=== PATIENT | female | born 1970 | race Caucasian/White ===

== ENCOUNTER 2020-09-25 08:10 | Outpatient (REF) | payer MEDICARE, MEDICAID, SELFPAY ==
--- NOTE | ~2020-09-25 | XR_ITS ---
EXAMINATION: XR SHOULDER, LEFT CLINICAL INFORMATION: Pain. COMPARISON: None TECHNIQUE: 3 views of the left shoulder. FINDINGS: The glenohumeral joint space and left AC joint space is normal. No bony erosive changes or loose bodies visualized. No visible acute fracture, dislocation or subluxation seen. XR/XR shoulder LT min 2V IMPRESSION: Unremarkable left shoulder exam.
== END 2020-09-25 08:11 | disposition home or self-care (01) ==
LOC: HO.HOSX 08:10
PROVIDERS: Visit Provider Orthopaedic Surgery
DX: M67.912 Unspecified disorder of synovium and tendon, left shoulder (principal); M25.512 Pain in left shoulder; G54.0 Brachial plexus disorders; Q68.8 Other specified congenital musculoskeletal deformities
CPT/HCPCS: 73030; 99202

== ENCOUNTER 2020-10-10 12:50 | Outpatient (REF) | payer MEDICARE, MEDICAID, SELFPAY ==
--- NOTE | ~2020-10-10 | MR_ITS ---
EXAMINATION: MRI SHOULDER WITHOUT CONTRAST, LEFT CLINICAL INFORMATION: Unspecified disorder of synovium and tendon, left shoulder. Patient reports constant pain, decreased range of motion, old injury-hyperextension, and history of arthrogryposis. COMPARISON: XR left shoulder 09/25/2020. TECHNIQUE: MRI scanning is performed using a standard protocol on a high-field strength 1.5 Yaa magnet. FINDINGS: ROTATOR CUFF: There is a large full-thickness insertional tear of the supraspinatus tendon extending to the anterior margin of the infraspinatus tendon, measuring 2.6 cm transverse and 3.5 cm AP. There is marked thinning of the mid subscapularis tendon and a moderate-sized full-thickness insertional tear of the distal tendon measuring 2.4 cm transverse and 1.2 cm craniocaudal. The teres minor tendon is intact. There is moderate fatty atrophy of the supraspinatus, infraspinatus, and subscapularis muscles. There is a small subacromial-subdeltoid bursal effusion. BICEPS: Completely torn and retracted. CORACOACROMIAL ARCH: The undersurface of the acromion is curved, slightly laterally downsloping, with a broad-based subacromial spur. There is mild osteoarthritis of the acromioclavicular joint. LABRUM/CAPSULE: The superior labrum appears to be blunted and torn. The anterior and posterior labrum are grossly intact. The capsular structures are unremarkable. GLENOHUMERAL JOINT/MARROW: There are small marginal osteophytes. There is patchy mild cartilage thinning in the glenohumeral joint. The humeral head is elevated and focally abuts the acromion process. MR/MR shoulder LT wo con IMPRESSION: 1. Large full-thickness insertional tear of the supraspinatus tendon extending to the anterior margin of the infraspinatus tendon. Moderate-sized full-thickness insertional tear of the distal subscapularis tendon. Moderate fatty atrophy of the supraspinatus, infraspinatus, and subscapularis muscles. 2. Completely torn and retracted long head of the biceps tendon. 3. Slightly laterally downsloping acromion process with broad-based subacromial spur. 4. Superior labral blunting and tear. 5. Mild glenohumeral osteoarthritis.
== END 2020-10-10 12:51 | disposition home or self-care (01) ==
LOC: HO.MRI 12:50
PROVIDERS: PCP Internal Medicine; Visit Provider Orthopaedic Surgery
DX: M67.912 Unspecified disorder of synovium and tendon, left shoulder (principal)
CPT/HCPCS: 73221

== ENCOUNTER → 2020-10-20 13:33 | Outpatient (BNVA) | payer MEDICARE, MEDICAID, SELFPAY | PROVIDERS: PCP Internal Medicine; Visit Provider Orthopaedic Surgery | DX: M25.319 Other instability, unspecified shoulder (principal); Q68.8 Other specified congenital musculoskeletal deformities | CPT/HCPCS: 20610; 99212; J1100 ==

== ENCOUNTER 2022-09-22 11:53 | Outpatient (REF) | payer OTHER, MEDICAID, SELFPAY ==
[2022-09-22 14:30] LABS: Carbamazepine Tegretol 9.6 mcg/mL (5.0-12.0)
== END 2022-09-22 11:54 | disposition home or self-care (01) ==
LOC: HO.LAB 11:53
PROVIDERS: Visit Provider Psychiatry & Neurology Neurology
DX: G40.909 Epilepsy, unspecified, not intractable, without status epilepticus (principal)
CPT/HCPCS: 36415; 80156

== ENCOUNTER 2023-09-28 11:58 | Outpatient (REF) | payer OTHER, MEDICAID, SELFPAY ==
[2023-09-28 13:27] LABS: Anion Gap 11 (12-20); Carbon Dioxide 28 mmol/L (22-29); Chloride 100 mmol/L (96-108); Sodium 135 mmol/L (135-145)
[2023-09-28 13:36] LABS: Carbamazepine Tegretol 9.4 mcg/mL (5.0-12.0)
== END 2023-09-28 11:59 | disposition home or self-care (01) ==
LOC: HO.LAB 11:58
PROVIDERS: Visit Provider Psychiatry & Neurology Neurology
DX: G40.909 Epilepsy, unspecified, not intractable, without status epilepticus (principal)
CPT/HCPCS: 36415; 80051; 80156

== ENCOUNTER 2024-11-06 13:42 | Outpatient (AMB) | payer OTHER, MEDICAID, SELFPAY ==
--- NOTE | 2024-11-06 13:45 | A.OFFVIS_ITS ---
Intake Visit Reasons: 6M/Sz Allergies No Known Allergies Allergy (Unverified 11/06/24 13:51) Medication List - Last Reconciled 11/06/24 by Viri Rossi CNP albuterol sulfate 90 mcg/actuation 2 puffs inhalation Q4H PRN carbamazepine 200 mg PO TID dorzolamide-timolol 22.3-6.8 mg/mL 1 drp ophthalmic (eye) BID latanoprost 0.005% 1 drp ophthalmic (eye) BEDTIME meloxicam 15 mg PO DAILY PRN ondansetron 4 mg PO Q8H PRN 30 days HPI Comments Details: No seizures. Not feeling well with heat. Feels ?uncomfortable,? and body feels shaky, and gets nauseous. It happened last night and had to take ondansetron, which helped some. More stress lately and mood was not so good, down and bit depressed, crying at times. Sleep was okay, getting about 7 hours/night. Using AFO, no falls. Arthritic hands. Had dislocated L thumb because of arthrogryposis. Has some body twitches which she feels are little seizures, especially in hot weather or when not sleeping well and over tired, and takes extra pill that day. Gets some funny feelings/sensations when tired or stressed. In 05/2022, fell and knocked out teeth in [place], had 12 stitches on her head, had not been sleeping well at that time. Dysphagia resolved. No auras or side effects in years. Had occasional twitches around her periods and premenstrual hyperacusis. 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 Her first seizure occurred at age 15 and was generalized tonic-clonic seizure during the night. Subsequently, the seizures have been partial with secondary generalization. 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 Carpal tunnel syndrome Tension headache Other specific muscle disorders Hemiplegia Convulsion Social History Alcohol intake: never Patient Tobacco Use Status: Never used Tobacco Current occupational status: disabled Current occupation: left handed Review of Systems Const Denies chills, Denies daytime sleepiness, Denies difficulty sleeping, Denies fatigue, Denies fever(s), Denies frequent falls, Denies headache(s), Denies increased appetite, Denies poor appetite, Denies snoring, Denies weakness, Denies weight gain and Denies weight loss Eyes Denies loss of vision ENT Denies vertigo, Denies dizziness, Denies headache(s) and Denies neck pain Card Denies chest pain at rest, Denies chest pain with activity, Denies syncope, Denies leg edema, Denies palpitations, Denies dyspnea and Denies dyspnea on exertion Resp Denies cough, Denies dyspnea, Denies dyspnea on exertion and Denies snoring GI Denies abdominal pain, Denies constipation, Denies heartburn, Denies diarrhea and Reports nausea Denies urinary frequency, Denies urinary incontinence and Denies urinary urgency Musc Denies abnormal gait, Denies back pain, Denies myalgias, Reports arthralgias, Denies neck pain, Denies numbness and Denies tingling Neuro Denies abnormal gait, Denies vertigo, Denies dizziness, Denies syncope, Denies frequent falls, Denies headache(s), Denies lack of coordination, Denies loss of vision, Denies memory loss, Denies numbness, Denies Other visual disturbances, Denies restless legs, Denies seizure-like activity, Denies tingling, Denies paresthesias, Denies tremor(s) and Denies weakness Psych Reports anxiety, Denies depression, Denies auditory hallucinations, Denies memory loss and Denies visual hallucinations Endo Denies fatigue and Denies palpitations Physical Exam Const Other: General Appearance:? normal, in no acute distress. Heart:? S1, S2 normal, no murmurs. Lungs:? clear anteriorly and posteriorly. Musculoskeletal:? normal. Extremities:? no edema. Psych:? alert, oriented, cognitive function intact, cooperative with exam. Tearful at times. Neuro Other: Abnormal Neurological Findings:?R hemiatriphy and arthrogryposis. Walks with mild hemiparetic gait and cane, L AFO brace. Tearful at times. Mental Status: alert and oriented X 3. Normal attention, orientation, memory, and affect. Cranial Nerves: Pupils are equal, round, and reactive to light. External ocular muscles are intact. Visual hackett are full, no ptosis. Face is symmetrical, no facial weakness or droop. Facial sensations are normal. Tongue protrudes in midline. Palate elevates symmetrically. Shoulder shrugging is normal Motor Examination: R wilmer-atrophy and weakness, especially UE. Sensory Exam: Normal light touch, temperature, pinprick, vibration, and joint- position sensations. Rhomberg sign is absent. Coordination: No ataxia. No titubation. [id number], [id number] test, and rapid alternating movements were normal. Gait Exam: As above. Cerebellar Signs: [id number] is okay. Extrapyramidal System: No tremor, rigidity with normal facial expressions. No bradykinesia. No bradyphrenia. Normal arm swing and posture. No propulsion or retropulsion. Speech: Normal. Assessment & Plan Assessment & Plan (1) Seizure disorder: Code(s): G40.909 - Epilepsy, unspecified, not intractable, without status epilepticus Category: Medical Plan: Continue carbamazepine 200mg 1 tablet three times a day. (2) Arthrogryposis: Code(s): Q68.8 - Other specified congenital musculoskeletal deformities Category: Medical Plan: Continue meloxicam 15mg 1 tablet daily. Continue ondansetron 4mg 1 tablet as needed for nausea. (3) Anxiety and depression: Code(s): F41.9 - Anxiety disorder, unspecified; F32.A - Depression, unspecified Category: Medical Plan: Start sertraline 25mg 1 tablet daily, use/side effects reviewed. Medications: New sertraline 25 mg PO DAILY 90 tabs 0RF 90 days Coding Level of Care Code Est Pt Level 4 (44524) Diagnoses Seizure disorder G40.909 Arthrogryposis Q68.8 Anxiety and depression F41.9; F32.A
--- OUTSIDE RECORDS SUMMARY | 2024-11-06 14:23 | XMS_ITS ---
Author Name [facility] Organization Unknown Care Team Organization Name Specialty Phone Email Start Date End Da te [facility] 02/09/2022 4
== END 2024-11-06 14:14 | disposition home or self-care (01) ==
LOC: HO.HSM 13:43
PROVIDERS: PCP Internal Medicine; Visit Provider Registered Nurse
DX: G40.909 Epilepsy, unspecified, not intractable, without status epilepticus (principal); Q68.8 Other specified congenital musculoskeletal deformities; F41.9 Anxiety disorder, unspecified; F32.A Depression, unspecified
CPT/HCPCS: 99214